=== PATIENT | female | born 1960 | race Caucasian/White ===

== ENCOUNTER 2024-04-18 09:28 | Outpatient (AMB) | payer BC, SELFPAY ==
[2024-04-18 10:09] VITALS: BP 133/77; PULSE 74; RESP 20; TEMP 36.6; O2SAT 93; BMI 53.5
--- NOTE | 2024-04-18 10:09 | PD.ORTHCLVIS ---
Vital signs 04/18/24 10:09 Height 1.57 m Height Method Stated Weight 132.704 kg Weight Measurement Method Standing Scale BMI 53.5 BP 133/77 H Blood Pressure Source Automatic Cuff Blood Pressure Location Right Lower Arm Position Sitting Respiration 20 Pulse 74 Pulse Source Monitor Temp 97.9 F Temp Source Temporal Artery Scan Pulse Oximetry (%) 93 L Oxygen Delivery Method Room Air Med/Allergies Allergies & Medications Allergies codeine Allergy (Verified 04/18/24 10:10) Medication Reconciliation atorvastatin 20 mg tablet 20 mg PO QDAY 04/18/24 [History Confirmed 04/18/24] duloxetine 30 mg capsule,delayed release 30 mg PO QDAY 04/18/24 [History Confirmed 04/18/24] gabapentin 300 mg capsule 300 mg PO QDAY 04/18/24 [History Confirmed 04/18/24] montelukast 10 mg tablet 10 mg PO QDAY 04/18/24 [History Confirmed 04/18/24] paroxetine HCl 30 mg tablet 30 mg PO QDAY 04/18/24 [History Confirmed 04/18/24] trazodone 50 mg tablet 50 mg PO QDAY 04/18/24 [History Confirmed 04/18/24] Exam Exam Patient is in no acute distress and is cooperative with the examination today. Breathing is nonlabored. Patient has a normal mood and affect. Bilateral extremities were evaluated and demonstrates sensation intact to light touch. Palpable pedal pulses are present. No significant edema is present. Bilateral hips were examined. The patient has no pain with log roll of the hips. Internal rotation to 30 degrees and external rotation to 30 degrees is painless. Negative FADIR. Left knee was examined today. The left knee is in reasonable alignment. Range of motion from 0-120 degrees. Knee is stable to varus and valgus as well as AP translation with <5mm. Patient has a negative McMurrays. There is no pain with patellofemoral compression and no crepitus noted. The knee is nontender to palpation. The right knee was also examined. The right knee is in [varus] alignment. Range of motion from [0-115] degrees. Knee is stable to varus and valgus as well as AP translation with <5mm. Patient has a [negative] McMurrays. There is [no] pain with patellofemoral compression and [no] crepitus noted. The knee is [tender] to palpation [medially]. [facility] of [facility] demonstrate complete joint space obliteration medially Assessment and Plan Problem List (1) Arthritis of knee, right: Status: Acute Plan: Patient is a 63-year-old female with bilateral knee pain worse on the right. We discussed nonoperative and operative options. She would like to continue with conservative treatment. We discussed that she needs to lose a significant amount of weight in order to get surgery. She understands this and is lost 30 pounds already. She is not currently a great candidate for total knee replacement given her RALPH and morbid obesity. We recommend continued conservative treatment for now. 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 ([id number]) MA Intake Visit Data Collection New Patient or Established: New Patient (never been to [facility]) Reason for Visit:: rt knee pain Seen by Clinical Staff ONLY (RN/MA): No Verbal consent obtained for Telemed visit?: No Computer Engineer Required: No Hx Now: No Questionairres Past Medical History Past Medical History Have you ever been diagnosed with any of the following: Respiratory Problems Smoking: No Smoking Cessation Counseling: No Subjective Visit Visit for: new patient and knee Immunization / Flu Flu Vaccine in the Last 12 Months: Yes Flu Vaccine Exclusion Criteria: Already Received History of Present Illness Chief complaint: rt knee pain Date of injury / onset of symptoms: >5 years Carleen is a morbidly obese 63-year-old female who presents today for evaluation of her right knee. She has [id number]. She was told by multiple orthopedic surgeons that she needs a knee replacement but they cannot do it due to her body habitus. Her BMI is currently 54. She actually lost 30 pounds. Personal History Occupation: retired BMI Counceling provided: Yes Pain Pain level (0-10): 4 Pain duration: constant Pain location: inside (medial), outside (lateral), anterior and posterior Pain quality: sharp and aching Pain timing: increases with activity, stairs and other (specify) (standing) Ambulatory data Ambulatory device: cane Walking distance (minutes): 5 Treatments Improvement with NSAIDS: n/a Review of Systems Review of Systems: All systems negative unless otherwise noted in HPI.
== END 2024-04-18 10:39 | disposition home or self-care (01) ==
LOC: HODSRG 09:28
PROVIDERS: PCP Nurse Practitioner; Referring Provider Nurse Practitioner; Supervising Provider Orthopaedic Surgery Adult Reconstructive Orthopaedic Surgery; Visit Provider Orthopaedic Surgery Adult Reconstructive Orthopaedic Surgery
DX: M17.11 Unilateral primary osteoarthritis, right knee (principal); M25.562 Pain in left knee; M25.561 Pain in right knee; E66.01 Morbid (severe) obesity due to excess calories; Z68.43 Body mass index [BMI] 50.0-59.9, adult
CPT/HCPCS: 99202; G0463